=== PATIENT | male | born 1960 | race Caucasian/White ===

== ENCOUNTER 2016-08-19 11:43 | Emergency (ER) | payer MEDICAID, OTHER ==
[2016-08-19] MEDS ORDERED: HYDROmorphone HCL 1 MG/ML SYR ONE (13:34)
--- NOTE | 2016-08-19 15:08 | ER NURSING DOCUMENTATION ---
Nurse's Notes [facility] Name:Jorden Kumar Age:55 yrs Sex:Male :1960 Arrival Date:08/19/2016 Time:11:43 Bed6 Private MD: Diagnosis:Sciatica Presentation: 08/19 12:15 Presenting complaint: Patient states: R sided back pain with R leg pain. Transition of cb care: Other [place] Mcallister. 12:15 Method Of Arrival: Walk In cb 12:15 Acuity: AUBREY 3 cb Triage Assessment: 12:21 General: Appears distressed, well groomed, Behavior is cooperative, restless. Pain: cb Complains of pain in right low back Pain radiates to right hamstring, posterior aspect of right knee, right calf and right Achilles Pain currently is 8 out of 10 on a pain scale. Quality of pain is described as tingling, numb, admits to some weakness of foot when attempting to left foot. EENT: Reports nasal congestion patient states he has chronic sinus problem for 25 years. Neuro: Level of Consciousness is awake, alert, Oriented to person, place, time, event. Cardiovascular: Pulses are 2+ in right posterior tibial artery and right dorsalis pedis artery. Respiratory: Airway is patent Trachea midline Respiratory effort is even, labored, Respiratory pattern is regular, symmetrical. GI: Reports tolerance of fluids, tolerance of food. : Reports urinary frequency. Derm: Denies rash or brusing. Musculoskeletal: Capillary refill < 3 seconds. Historical: - Allergies: No known drug Allergies; - Home Meds: 1. tylenol 2. Motrin IB oral 3. albuterol sulfate 90 mcg/actuation inhalation HFAA 2 puffs as needed - PMHx: COPD; gastrisits ; - PSHx: Appendectomy; - Tetanus: < 10 years. - Ebola Screening: : Patient negative for fever greater than or equal to 101.5 degrees Fahrenheit, and additional compatible Ebola Virus Disease symptoms. Patient denies exposure to infectious person. Patient denies travel to an Ebola-affected area in the 21 days before illness onset. No symptoms or risks identified at this time. . - Immunization history: Flu Vaccine None. - Social history: Smoking status: Patient uses tobacco products, current every day smoker. Screenin:29 Infectious Disease Risk None. Abuse screen: Denies threats or abuse. Denies injuries cb from another. Nutritional screening: No deficits noted. Vital Signs: 11:53 BP 129 / 72; Pulse 47; Resp 16; Temp 97.5; Pulse Ox 94% ; Weight 72.57 kg; Height 5 ft. jt 11 in. (180.34 cm); Pain 8/10; 11:53 Body Mass Index 22.32 (72.57 kg, 180.34 cm) jt ED Course: 11:45 Patient arrived in ED. jt 12:11 Alo Nguyen MD is Attending Physician. 12:15 Rocio Romero RN is Primary Nurse. cb 12:17 Triage completed. cb 12:29 Valuables Remains with patient Patient has correct armband on for positive cb identification. Bed in low position. Call light in reach. Adult w/ patient. Administered Medications: 12:48 CANCELLED (Physician Discretion): Dilaudid 1 mg IM once jm 12:50 Drug: Dilaudid 2 mg; Route: IM; Site: left gluteus; cb 15:43 Follow up: Response: Pain is decreased cb Outcome: 12:48 Discharge ordered by . jm 14:10 Discharged to home ambulatory, with family. cb 14:10 Condition: stable 14:10 Discharge Assessment: Patient awake, alert and oriented x 3. No cognitive and/or functional deficits noted. Patient verbalized understanding of disposition instructions. 14:10 Discharge instructions given to patient, Instructed on discharge instructions, follow up and referral plans. Demonstrated understanding of instructions, medications, Prescriptions given X 2. 15:07 Patient left the ED. cb Signatures: Rocio Romero RN RN cb Meyer, John, MD MD jm Tennant, Joanne
--- NOTE | 2016-08-19 15:08 | ER PHYSICIAN DOCUMENTATION ---
Physician Documentation [facility] Name:Jorden Kumar Age:55 yrs Sex:Male :1960 Arrival Date:08/19/2016 Time:11:43 Bed6 Private MD: Alo Soriano Disposition: 08/19/16 12:48 Discharged to Home/Self Care. Impression: Sciatica. - Condition is Good. - Discharge Instructions: BACK PAIN w/ SCIATICA. - Prescriptions for Ambien 10 mg Oral - take 1 tablet by ORAL route At bedtime As needed; 15 tablet. Dilaudid 4 mg Oral - take 1 tablet by ORAL route every 6 hours As needed; 30 tablet. - Medical Reconciliation form form. - Follow up: Private Physician; When: 1 week; Reason: Continuance of care. - Problem is chronic. - Symptoms have improved. HPI: 08/19 13:15 This 55 yrs old Male presents to ER via Walk In with complaints of Back Pain. 13:15 The patient presents with pain that is chronic. The symptoms are located in the right jm low back. Onset: The symptoms/episode began/occurred 2 week(s) ago. The pain radiates down the patient's left lower extremity. Associated signs and symptoms: Pertinent positives: numbness, tingling, weakness. The problem was sustained arthritis, stenosis, and foraminal narrowing involving the R spine causing sciatic nerve pain. . 13:17 The patient has experienced similar episodes in the past. The patient has not recently jm seen a physician. Pt here for pain control. He is moving around a lot, including tomorrow and could not take his known sciatic pain any longer, so he walked to the ER. . Historical: - Allergies: No known drug Allergies; - Home Meds: 1. tylenol 2. Motrin IB oral 3. albuterol sulfate 90 mcg/actuation inhalation HFAA 2 puffs as needed - PMHx: COPD; gastrisits ; - PSHx: Appendectomy; - Tetanus: < 10 years. - Ebola Screening: : Patient negative for fever greater than or equal to 101.5 degrees Fahrenheit, and additional compatible Ebola Virus Disease symptoms. Patient denies exposure to infectious person. Patient denies travel to an Ebola-affected area in the 21 days before illness onset. No symptoms or risks identified at this time. . - Immunization history: Flu Vaccine None. - Social history: Smoking status: Patient uses tobacco products, current every day smoker. ROS: 13:18 Constitutional: Negative for fever. jm 13:18 Back: Positive for pain at rest, pain with movement. 13:18 : Negative for urinary symptoms, difficulty urinating, bladder incontinence. 13:18 MS/extremity: Positive for paresthesias, tingling. 13:18 Skin: Negative for rash, swelling. 13:18 Neuro: Positive for weakness. Exam: 13:20 Constitutional: The patient appears alert, awake, in obvious distress, moderately jm distressed. 13:20 Cardiovascular: Rate: bradycardic, Rhythm: regular. 13:20 Back: pain, that is moderate, of the right low back, CVA tenderness, is absent, vertebral tenderness, is not appreciated, Straight leg raises: right lower extremity illicits pain, at 30 degrees. 13:20 : CVA tenderness, is absent, Bladder: is normal. 13:20 Musculoskeletal/extremity: Pulses: noted to be 2+ in the right posterior tibial artery, right dorsalis pedis artery, left posterior tibial artery and left dorsalis pedis artery. 13:20 Neuro: Mentation: is normal, Memory: is normal, Sensation: tingling, that is mild, of the right leg, Gait: is steady, Deep tendon reflexes are 2+ (normal) in the right patellar and left patellar. 13:20 Psych: Behavior/mood is pleasant, cooperative, anxious, Affect is calm. Vital Signs: 11:53 BP 129 / 72; Pulse 47; Resp 16; Temp 97.5; Pulse Ox 94% ; Weight 72.57 kg; Height 5 ft. jt 11 in. (180.34 cm); Pain 8/10; 11:53 Body Mass Index 22.32 (72.57 kg, 180.34 cm) jt MDM: 11:46 Patient medically screened. aline 13:22 Differential diagnosis: sciatic nerve pain. Data reviewed: vital signs, nurses notes, jm and as a result, I will discharge patient. Counseling: I had a detailed discussion with the patient and/or guardian regarding: the historical points, exam findings, and any diagnostic results supporting the discharge/admit diagnosis, the need for outpatient follow up, with the patient's primary care provider. Medication response: The patient's symptoms have improved, Dilaudid. ED course: Pt here for pain control. I suspect pure sciatic nerve pain w pain to the foot, but pt continues to overwork himself. Pt got much relief w IM Dilaudid. Pt will be DCd home w script for more. . 14:58 ED course: Pt told he needs to see pain specialist and or spine surgeon for further jm care. . Dispensed Medications: 12:48 CANCELLED (Physician Discretion): Dilaudid 1 mg IM once 12:50 Drug: Dilaudid 2 mg; Route: IM; Site: left gluteus; cb 15:43 Follow up: Response: Pain is decreased cb Signatures: Rocio Romero RN RN cb Alo Nguyen MD MD
== END 2016-08-19 15:08 | disposition home or self-care (01) ==
LOC: ER 11:43
DX: M54.41 Lumbago with sciatica, right side (principal); J44.9 Chronic obstructive pulmonary disease, unspecified; Z79.899 Other long term (current) drug therapy; F17.210 Nicotine dependence, cigarettes, uncomplicated
CPT/HCPCS: 96372; 99283; J1170